=== PATIENT | female | born 1980 | race Caucasian/White ===

== ENCOUNTER → 2017-02-13 | Outpatient (CLI) | payer OTHER | LOC: OD 07:19 | PROVIDERS: ATTEND Nurse Practitioner Primary Care | DX: N97.9 Female infertility, unspecified (principal) | CPT/HCPCS: 36415; 82670 ==

== ENCOUNTER → 2017-02-23 | Outpatient (CLI) | payer BC | LOC: OD 07:57 | PROVIDERS: ATTEND Nurse Practitioner Primary Care | DX: N97.9 Female infertility, unspecified (principal) | CPT/HCPCS: 36415; 82670 ==

== ENCOUNTER → 2017-03-02 | Outpatient (CLI) | payer BC ==
[2017-03-03 08:51] LABS: PROGESTERONE 0.2 ng/mL (.)
== END ==
LOC: OD 07:35
PROVIDERS: ATTEND Nurse Practitioner Primary Care
DX: N97.9 Female infertility, unspecified (principal)
CPT/HCPCS: 36415; 82670; 84144

== ENCOUNTER → 2017-03-19 | Outpatient (CLI) | payer BC | LOC: OD 10:23 | PROVIDERS: ATTEND Nurse Practitioner Primary Care | DX: O20.0 Threatened abortion (principal) | CPT/HCPCS: 36415; 84702 ==

== ENCOUNTER → 2017-03-21 | Outpatient (CLI) | payer BC | LOC: OD 07:47 | PROVIDERS: ATTEND Nurse Practitioner Primary Care | DX: O20.0 Threatened abortion (principal) | CPT/HCPCS: 36415; 84144; 84702 ==

== ENCOUNTER → 2017-03-23 | Outpatient (CLI) | payer BC | LOC: OD 10:59 | PROVIDERS: ATTEND Nurse Practitioner Primary Care | DX: O09.01 Supervision of pregnancy with history of infertility, first trimester (principal); O20.0 Threatened abortion | CPT/HCPCS: 36415; 84702 ==

== ENCOUNTER 2017-10-16 11:02 | Inpatient (IN) | payer OTHER ==
[2017-11-15] MEDS ORDERED: RINGERS SOLUTION,LACTATED 1,000 ML IV PRN (07:41)
[2017-11-15] MEDS ORDERED: OXYTOCIN/NORMAL SALINE 20 UNIT/1,000 ML RTUINJ IV PRN ×2 (07:41→12:52)
[2017-11-15] MEDS ORDERED: RINGERS SOLUTION,LACTATED 1,000 ML IV ONE (07:41)
[2017-11-15] MEDS ORDERED: OXYTOCIN/NORMAL SALINE 20 UNIT/1,000 ML RTUINJ ONE (08:31)
[2017-11-15] MEDS ORDERED: MISOPROSTOL 0.2 MG TABLET ONE (08:31)
[2017-11-15] MEDS ORDERED: LIDOCAINE 1% INJ-PF (10 MG/ML) 30 ML SDV ONE (08:31)
[2017-11-15 08:38] LABS: ABSOLUTE BASOPHILS # (AUTO) 0.1 10^3/uL (0.0-0.2); ABSOLUTE EOSINOPHILS # (AUTO) 0.2 10^3/uL (0.0-0.6); ABSOLUTE LYMPHOCYTES (AUTO) 4.8 10^3/uL (0.5-4.7); ABSOLUTE MONOCYTES (AUTO) 1.2 10^3/uL (0.1-1.4); BASOPHILS % (AUTO) 0.6 % (0-2); EOSINOPHILS % (AUTO) 1.3 % (0-6); HEMATOCRIT 37.3 % (36.0-47.0); HEMOGLOBIN 12.2 g/dL (12.0-15.5); LYMPHOCYTES % (AUTO) 36.2 % (13-45); MEAN CORPUSCULAR HGB CONC 32.6 g/dL (32.0-36.0); MEAN CORPUSCULAR VOLUME 89 fl (80-97); MONOCYTES % (AUTO) 9.2 % (3-13); PLATELET COUNT 312 10^3/uL (150-450); RED BLOOD COUNT 4.21 10^6/uL (3.72-5.28); RED CELL DISTRIBUTION WIDTH 13.9 % (11.5-14.0); SEGMENTED NEUTROPHILS % (AUTO) 52.7 % (42-78); TOTAL CELLS COUNTED % (AUTO) 100 %; WHITE BLOOD COUNT 13.3 10^3/uL (4.0-10.5)
--- NOTE | 2017-11-15 08:45 | Admission Physical ---
Datetime Report Generated by CPN: 11/15/2017 08:44 CURRENT ADMISSION Hx Assessment: The History has been Reviewed and is Current Chief Complaint: Scheduled Induction of Labor Indication for Induction- Other: cholestasis Admit Impression : Term, Intrauterine ; No Active Labor; Intact Membranes; Induction of Labor Admit Plan: Admit to Unit; Initiate Labor Induction Protocol ALLERGIES Medication Allergies: Yes Medication Allergies: nitrofurantoin macrocrystalline/WA (10/26/2014); nitrofurantoin/WA (10/26/2014) Latex: No Latex Allergies OBSTETRICAL HISTORY EDC: 11/24/2017 00:00 : 2 Para: 1 Term: 1 : 0 SAB: 0 IAB: 0 Ectopic: 0 Livin Cesareans: 0 VBACs: 0 Multiple Births: 0 Gestational Diabetes: No Rh Sensitization: No Incompetent Cervix: No HELEN: No Infertility: No ART Treatment: Yes Uterine Anomaly: No IUGR: No Hx Previous C/S: No Macrosomia: No Hx Loss/Stillborn: No PIH: Yes Hx : No Placenta Previa/Abruption: No Depression/PP Depression: No PTL/PROM: No Post Hemorrhage: No Current Procedures: Ultrasound; NST Obstetrical History Comments: G1: 10/2014, preeclampsia G2: current, cholestasis SEE RECORDS Alcohol: No Marijuana : No Cocaine: No Other Illicit Drugs: No Cigarettes: Never Smoker. [id number] MEDICAL HISTORY Diabetes: No Blood Transfusion: No Pulmonary Disease (Asthma, TB): No Breast Disease: No Hypertension: No Senior Foreman Surgery: No Heart Disease: No Hosp/Surgery: No Autoimmune Disorder: No Anesthetic Complications: No Kidney Disease: No Abnormal Pap Smear: No Neuro/Epilepsy: No Psychiatric Disorders: No Other Medical Diseases: No Hepatitis/Liver Disease: No Significant Family History: No Varicosities/Phlebitis: No Trauma/Violence : No Thyroid Dysfunction: No Medical History Comments: AMA, hx pre-eclampsia, hx precipitous labor, G1 IVF, cholestasis of INFECTIOUS HISTORY Gonorrhea: No Genital Herpes: No Chlamydia: No Tuberculosis: No Syphilis: No Hepatitis: No HIV/AIDS Exposure: No Rash or Viral Illness: No HPV: No PHYSICAL EXAM General: Normal HEENT: Normal Neurologic: Normal Thyroid: Deferred Heart: Normal Lungs: Normal Breast: Normal Back: Normal Abdomen: Normal Genitourinary Exam: Normal Extremities: Normal DTRs: Normal Pelvic Type: Adequate Physical Exam Comments: pelvis proven 6.5 lbs VAGINAL EXAM Dilatation: 4 Contraction Comments: irreg. MEMBRANES Membranes: Intact FETUS A EGA: 38.5 Monitoring: External US FHR- Baseline: 135 Variability: Moderate 6-25bpm Decelerations: None FHR Category: Category I Estimated Weight (gm): 3200 Presentation: Vertex Admit Comment: IOL for cholestasis. Hx pre-e, ama, IVF, + rpr, neg TPA Plan for AROM, pit, epidural Anticipate PLANS FOR LABOR AND DELIVERY Labor and Delivery: Cord Blood Banking Pain Management: Epidural Feeding Preference: Breast Benefit of Breast Feed Discussed: Yes Circumcision: Yes INFORMED CONSENT Assignment: Radha Canales MD Signature: with User ID: Russ : with User ID: [email or web address]
[2017-11-15 08:47] LABS: INTERNATIONAL RATION (INR) 0.95; PROTHROMBIN TIME 13.2 SEC (11.4-15.4)
[2017-11-15 08:48] LABS: PARTIAL THROMBOPLASTIN TIME 27.6 SEC (23.5-35.8)
[2017-11-15 08:58] LABS: ALANINE AMINOTRANSFERASE 25 U/L (9-52); ALBUMIN 3.1 g/dL (3.5-5.0); ALKALINE PHOSPHATASE 190 U/L (38-126); ANION GAP 12 (5-19); ASPARTATE AMINO TRANSFERASE 24 U/L (14-36); BILIRUBIN,DIRECT 0.2 mg/dL (0.0-0.4); BILIRUBIN,TOTAL 0.3 mg/dL (0.2-1.3); BLOOD UREA NITROGEN 9 mg/dL (7-20); CALCIUM 9.4 mg/dL (8.4-10.2); CARBON DIOXIDE 20 mmol/L (22-30); CHLORIDE 110 mmol/L (98-107); GLUCOSE 100 mg/dL (75-110); POTASSIUM 3.8 mmol/L (3.6-5.0); SODIUM 141.7 mmol/L (137-145); TOTAL PROTEIN 5.8 g/dL (6.3-8.2)
[2017-11-15 09:07] LABS: APPEARANCE,URINE SLIGHTLY-CLOUDY; BILIRUBIN,URINE NEGATIVE (NEGATIVE); COLOR,URINE YELLOW; GLUCOSE, URINE NEGATIVE (NEGATIVE); KETONES,URINE NEGATIVE (NEGATIVE); LEUKOCYTE ESTERASE,URINE TRACE (NEGATIVE); NITRITE,URINE NEGATIVE (NEGATIVE); PROTEIN,URINE NEGATIVE (NEGATIVE); UROBILINOGEN,URINE NEGATIVE mg/dL (<2.0)
[2017-11-15 09:28] LABS: URINE AMPHETAMINES SCREEN NEGATIVE; URINE BARBITURATES SCREEN NEGATIVE; URINE BENZODIAZEPINES SCREEN NEGATIVE; URINE COCAINE SCREEN NEGATIVE; URINE MARIJUANA (THC) SCREEN NEGATIVE; URINE METHADONE SCREEN NEGATIVE; URINE PHENCYCLIDINE SCREEN NEGATIVE
--- NOTE | 2017-11-15 10:14 | L&D Progress Notes ---
PROGRESS NOTES Datetime Report Generated by CPN: 11/15/2017 10:14 PROGRESS NOTE Impression: Normal Progression of Labor; Reassuring Heart Rate Impression: Normal Progression of Labor; Reassuring Heart Rate Procedures: Artificial ROM; Sterile Vag Exam Procedures: Artificial ROM; Sterile Vag Exam Plan: Continue Present Management Plan: Continue Present Management Informed Consent Obtained: Vaginal Delivery Informed Consent Obtained: Vaginal Delivery Vital Signs : Reviewed Vital Signs : Reviewed Comment: Pt requesting AROM AROM, clear, moderate amount pt may have epidural VAGINAL EXAM Dilatation: 6 Dilatation: 4 Effacement: 90 Station: -1 Contractions: irreg. Contractions: irreg. MEMBRANES Membranes: Ruptured Membranes: Intact Amniotic Fluid Color: Clear FETUS A FHR - Baseline: 135 Monitoring: External US Variability: Moderate 6-25bpm Accelerations: 15X15 Decelerations: None Estimated Weight (gm): 3200 Presentation: Vertex SIGNATURE SIGNATURE: [id number];[id number] SIGNATURE: [id number] Assignment: Radha Canales MD Signature: with User ID: [email or web address] : with User ID: [email or web address]
[2017-11-15] MEDS ORDERED: FENTANYL/BUPIVACAINE/NS/PF 300 MCG/150 ML RTUINJ EPI ONE (10:15)
[2017-11-15] MEDS ORDERED: BUPIVACAINE HCL 0.25 % INJ/PF (2.5 MG/1 ML) 30 ML VIAL ONE (10:15)
[2017-11-15] MEDS ORDERED: EPHEDRINE SULFATE INJ 50 MG/1 ML AMPULE ONE (10:15)
[2017-11-15] MEDS ORDERED: ACETAMINOPHEN WITH CODEINE #3 TABLET PO PRN ×2 (12:52)
[2017-11-15] MEDS ORDERED: DIBUCAINE 1% OINTMENT 28 GM TP PRN (12:52)
[2017-11-15] MEDS ORDERED: PROMETHAZINE HCL 25 MG TABLET PO PRN (12:52)
[2017-11-15] MEDS ORDERED: BENZOCAINE/MENTHOL AEROSOL SPRAY 56 ML TOP PRN (12:52)
[2017-11-15] MEDS ORDERED: PSEUDOEPHEDRINE HCL 30 MG TABLET PO PRN (12:52)
[2017-11-15] MEDS ORDERED: ZOLPIDEM TARTRATE 5 MG TABLET PO PRN (12:52)
[2017-11-15] MEDS ORDERED: PROMETHAZINE HCL INJ 25 MG/1 ML VIAL IV PRN (12:52)
[2017-11-15] MEDS ORDERED: DIPH/PERTUSS(ACELL)/TETANUS VAC/PF 0.5 ML SYR (>=10YO) IM PRN (12:52)
[2017-11-15] MEDS ORDERED: PROMETHAZINE HCL 25 MG SUPP.RECT PR PRN (12:52)
[2017-11-15] MEDS ORDERED: GLYCERIN/WITCH HAZEL LEAF 1 EACH MED..PAD TP PRN (12:52)
[2017-11-15] MEDS ORDERED: DIPHENHYDRAMINE HCL 25 MG CAPSULE PO PRN (12:52)
[2017-11-15] MEDS ORDERED: ACETAMINOPHEN 325 MG TABLET PO PRN (12:52)
[2017-11-15] MEDS ORDERED: MAGNESIUM HYDROXIDE SUSP 30 ML UDCUP PO PRN (12:52)
[2017-11-15] MEDS ORDERED: NA PHOS,M-B/NA PHOS,DI-BA (ADULT) 133 ML ENEMA PR PRN (12:52)
[2017-11-15] MEDS ORDERED: MEASLES,MUMPS&RUBELLA VACC/PF 0.5 ML VIAL SUBCUT PRN (12:52)
--- NOTE | 2017-11-15 13:08 | Delivery Summary ---
Del Sum A-C Datetime Report Generated by CPN: 11/15/2017 13:08 DELIVERY PERSONNEL DELIVERY PERSONNEL: [id number] Delivery Doctor:: Radha Canales MD Labor and Delivery Nurse:: Ayesha Orellana RNbrush fabrication supervisor Nurse:: ROBERT Jarrett Quality Process Engineer/BARIATRIC PROGRAM COORDINATOR: Yris MushtaqBeekom, TUNNEL ELASTIC OPERATOR [email or web address] MATERNAL INFORMATION Delivery Anesthesia: Epidural Medications After Delivery: Pitocin Bolus-Please Comment; Pitocin Drip 20 Units/1000ml NSS Maternal Complications: None LABOR SUMMARY EDC: 11/24/2017 00:00 No. Babies in Womb: 1 Attempted: No Labor Anesthesia: Epidural LABOR INFORMATION Reason for Induction: Other Reason for Induction- Other: cholestasis Onset of Labor: 11/15/2017 10:05 Complete Dilatation: 11/15/2017 11:34 Oxytocin: Induction Group B Beta Strep: negative Antibiotics # of Doses: 0 Steroids Given: None Reason Steroids Not Administered: Not Applicable MEMBRANES Membranes Rupture Method: Artificial Rupture of Membranes: 11/15/2017 10:05 Length of Rupture (hr): 1.82 Amniotic Fluid Color: Clear Amniotic Fluid Amount: Large Amniotic Fluid Odor: Normal STAGES OF LABOR Stage 1 hr: 1 Stage 1 min: 29 Stage 2 hr: 0 Stage 2 min: 20 Stage 3 hr: 0 Stage 3 min: 16 Total Time in Labor hr: 2 Total Time in Labor min: 5 VAGINAL DELIVERY Episiotomy: None Laceration #1: Perineal Laceration Extension #1: First Degree Laceration Repair: Yes CSECTION DELIVERY Primary Indication: N/A Secondary Indication: N/A CSection Incidence: N/A Labor: N/A Elective: N/A CSection Incision: N/A BABY A INFORMATION Delivery Date/Time: 11/15/2017 11:54 Method of Delivery: Vaginal Born in Route : No : N/A Forceps: N/A Vacuum Extraction: N/A Shoulder Dystocia : No PRESENTATION/POSITION BABY A Presentation: Cephalic Cephalic Presentation: Vertex Vertex Position: Right Occipital Anterior Breech Presentation: N/A PLACENTA INFORMATION BABY A Placenta Delivery Time : 11/15/2017 12:10 Placenta Method of Delivery: Spontaneous Placenta Status: Delivered SCORES BABY A Heart Rate 1 min: >100 bpm Resp Effort 1 min: Good Cry Reflex Irritability 1 min: Cough or Sneeze or Pulls Away Muscle Tone 1 min: Active Motion Color 1 min: Blue/Pale Resuscitation Effort 1 min: Tactile Stimulation SCORE 1 MIN: 8 Heart Rate 5 min: >100 bpm Resp Effort 5 min: Good Cry Reflex Irritability 5 min: Cough or Sneeze or Pulls Away Muscle Tone 5 min: Active Motion Color 5 min: Body [place], Extremities Blue Resuscitation Effort 5 min: Tactile Stimulation SCORE 5 MIN: 9 INFANT INFORMATION BABY A Gestational Age at Delivery: 38.5 Gestational Status: Early Term- 37- 38.6 Weeks Outcome : Liveborn Infant Condition : Stable Infant Sex: Male IDENTIFICATION BABY A Verification Date/Time: 11/15/2017 12:16 ID Band Number: [id number] Mother's Name Verified: Yes RN Verifying Infant: Yumiko Ocasio RN Additional Verifying Personnel: ROBERT Ceballos WEIGHT/LENGTH BABY A Infant Birthweight (gm): 3460 Infant Weight (lb): 7 Weight (oz): 10 Infant Length (in): 21.00 Infant Length (cm): 53.34 CORD INFORMATION BABY A No. Cord Vessels: 3 Nuchal Cord : Around Neck x1, Loose Cord Blood Taken: Yes-For Storage (Mom's Blood type +) Banking/Donate Info: [employer] [facility] Infant Suction: None ASSESSMENT BABY A Complications: None Physical Findings at Delivery: Within Normal Limits Infant Respirations: Appears Normal Skin to Skin: Yes Skin to Skin Time (min): 60 Radiographer/ALS Called : No Infant Care By: Huma Curtis C Transferred To: Remains with Mother BABY B INFORMATION : N/A
--- NOTE | 2017-11-15 13:08 | Warning Signs in Babies ---
VOD Warning Signs Datetime Report Generated by [facility]: 11/15/2017 13:08 VOD#[id number] -Warning Signs in Babies: Viewed with Parent(s)/Family (11/15/2017 07:09:Ayesha Orellana RN)
[2017-11-15] MEDS: IBUPROFEN 800 MG TABLET PO SCH ×2 (16:25→22:24)
[2017-11-15] MEDS: DOCUSATE SODIUM 100 MG CAPSULE PO SCH (18:15)
[2017-11-15] MEDS: FERROUS SULFATE 325 MG TABLET PO SCH (18:15)
[2017-11-15] MEDS: FAMOTIDINE 20 MG TABLET PO SCH (22:25)
[2017-11-16] MEDS: IBUPROFEN 800 MG TABLET PO SCH ×3 (06:16→21:32)
[2017-11-16 07:46] LABS: HEMATOCRIT 31.3 % (36.0-47.0); HEMOGLOBIN 10.8 g/dL (12.0-15.5); MEAN CORPUSCULAR HEMOGLOBIN 30.5 pg (27.0-33.4); MEAN CORPUSCULAR HGB CONC 34.4 g/dL (32.0-36.0); MEAN CORPUSCULAR VOLUME 89 fl (80-97); PLATELET COUNT 244 10^3/uL (150-450); RED BLOOD COUNT 3.53 10^6/uL (3.72-5.28); RED CELL DISTRIBUTION WIDTH 13.5 % (11.5-14.0); WHITE BLOOD COUNT 15.2 10^3/uL (4.0-10.5)
[2017-11-16] MEDS: SENNOSIDES/DOCUSATE 8.6-50 MG 1 EACH TABLET PO SCH (09:17)
[2017-11-16] MEDS: DOCUSATE SODIUM 100 MG CAPSULE PO SCH ×2 (09:17→17:28)
[2017-11-16] MEDS: PRENATAL VITAMIN W DHA CAPSULE PO SCH (09:18)
[2017-11-16] MEDS: FERROUS SULFATE 325 MG TABLET PO SCH ×2 (09:18→17:29)
[2017-11-16] MEDS: FAMOTIDINE 20 MG TABLET PO SCH ×2 (09:19→21:32)
--- NOTE | 2017-11-16 09:22 | PDOC PROGRESS REPORT ---
Subjective-OB Progress Note for:: 11/16/17 Subjective: s/p vaginal delivery pt well ff@u-1 mild lochia hgb 10.8 offers no complaints anticipate d/c in AM Physical Exam (OB) Vital Signs: Temp Pulse Resp BP Pulse Ox 98.6 F 78 16 113/74 97 11/15/17 19:44 11/15/17 19:44 11/15/17 19:44 11/15/17 19:44 11/15/17 19:44 Intake & Output 11/15/17 11/16/17 11/17/17 06:59 06:59 06:59 Intake Total 400 Balance 400 Weight 77.9 kg - PIH/Pre-Eclampsia DTR's: 1 + Clonus: Negative Headache: Absent Epigastric Pain: No Visual Changes: No - Lochia Lochia Amount: Scant < 10 ml Lochia Color: Rubra/Red - Abdomen Description: Soft, Round Hernia Present: No Fundal Description: Firm, Midline Fundal Height: u/u - u/2 Objective-Diagnostic Laboratory: 11/16/17 07:08 11/15/17 08:01 11/16/17 07:08 WBC 15.2 H RBC 3.53 L Hgb 10.8 L Hct 31.3 L MCV 89 MCH 30.5 MCHC 34.4 RDW 13.5 Plt Count 244
[2017-11-17] MEDS: IBUPROFEN 800 MG TABLET PO SCH (06:08)
[2017-11-17 07:52] VITALS: BP 115/73
--- NOTE | 2017-11-17 08:13 | PDOC DISCHARGE SUMMARY ---
Final Diagnosis Discharge Date: 11/17/17 - Final Diagnosis (1) Cholestasis during Is this a current diagnosis for this admission?: Yes (2) Vaginal delivery Is this a current diagnosis for this admission?: Yes Discharge Data - Discharge Medication Home Medications: 95/Iron Fum/Folic/Dha [ + Dha Combo Pack] 1 tab PO DAILY Ranitidine HCl [Zantac] 300 mg PO PRN PRN 11/15/17 Reason(s) for Admission: Induction of Labor Complication(s): Laceration-Vaginal Laceration-Degree: 1st - Diagnosis Test Laboratory: Temp Pulse Resp BP Pulse Ox 98.4 F 74 18 115/73 99 11/17/17 07:19 11/17/17 07:19 11/17/17 07:19 11/17/17 07:19 11/17/17 07:19 11/15/17 11/15/17 11/16/17 07:50 08:01 07:08 RBC 4.21 3.53 L Hgb 12.2 10.8 L Hct 37.3 31.3 L Urine Opiates Screen NEGATIVE - Discharge information/Instructions Discharge Activity: Activity As Tolerated Discharge Diet: Regular Disposition: HOME, SELF-CARE Follow up with: [facility] in: 3
[2017-11-17] MEDS: PRENATAL VITAMIN W DHA CAPSULE PO SCH (09:37)
[2017-11-17] MEDS: FERROUS SULFATE 325 MG TABLET PO SCH (09:38)
[2017-11-17] MEDS: SENNOSIDES/DOCUSATE 8.6-50 MG 1 EACH TABLET PO SCH (09:38)
[2017-11-17] MEDS: DOCUSATE SODIUM 100 MG CAPSULE PO SCH (09:38)
--- NOTE | 2017-11-19 08:21 | Delivery Summary ---
Del Sum A-C Datetime Report Generated by CPN: 11/19/2017 08:21 DELIVERY PERSONNEL DELIVERY PERSONNEL: [id number] Delivery Doctor:: Radha Canales MD Anesthesiologist:: Ralph Sampson MD Labor and Delivery Nurse:: Ayesha Orellana RNbatt packer Nurse:: ROBERT Jarrett Speech Correction Assistant/TETRYL WRINGER OPERATOR: Yris Clinton, SWATCH CHECKER MATERNAL INFORMATION Delivery Anesthesia: Epidural Medications After Delivery: Pitocin Bolus-Please Comment; Pitocin Drip 20 Units/1000ml NSS Estimated Blood Loss (ml): 200 Maternal Complications: None Provider Comments: VMI delivered in EMILIE presentation with loose nuchal cord. Shoulders and body delivererd without difficulty. Cord doubly clamped and cut and cord blood banking kit completed per patient request. Placenta delivered via manual extraction due to 16 minute time delay and placenta adhered at midline of fundus. Repeat evaluation revealed no e/o retained placenta. 1st degree laceration repaired in usual fashion. FF at U. Good hemostasis. Mother and baby stable upon provider leaving the room. LABOR SUMMARY EDC: 11/24/2017 00:00 No. Babies in Womb: 1 Attempted: No Labor Anesthesia: Epidural LABOR INFORMATION Reason for Induction: Other Reason for Induction- Other: cholestasis of Onset of Labor: 11/15/2017 10:05 Complete Dilatation: 11/15/2017 11:34 Oxytocin: Induction Group B Beta Strep: negative Antibiotics # of Doses: 0 Steroids Given: None Reason Steroids Not Administered: Not Applicable MEMBRANES Membranes Rupture Method: Artificial Rupture of Membranes: 11/15/2017 10:05 Length of Rupture (hr): 1.82 Amniotic Fluid Color: Clear Amniotic Fluid Amount: Large Amniotic Fluid Odor: Normal STAGES OF LABOR Stage 1 hr: 1 Stage 1 min: 29 Stage 2 hr: 0 Stage 2 min: 20 Stage 3 hr: 0 Stage 3 min: 16 Total Time in Labor hr: 2 Total Time in Labor min: 5 VAGINAL DELIVERY Episiotomy: None Laceration #1: Perineal Laceration Extension #1: First Degree Laceration Repair: Yes Laceration Repair Note: 1st degree perineal laceration repaired in usual fashion Sponge Count Correct: Yes Sharps Count Correct: Yes CSECTION DELIVERY Primary Indication: N/A Secondary Indication: N/A CSection Incidence: N/A Labor: N/A Elective: N/A CSection Incision: N/A BABY A INFORMATION Infant Delivery Date/Time: 11/15/2017 11:54 Method of Delivery: Vaginal Method of Delivery: Vaginal Born in Route : No : N/A Forceps: N/A Vacuum Extraction: N/A Shoulder Dystocia : No PRESENTATION/POSITION BABY A Presentation: Cephalic Cephalic Presentation: Vertex Vertex Position: Right Occipital Anterior Breech Presentation: N/A PLACENTA INFORMATION BABY A Placenta Delivery Time : 11/15/2017 12:10 Placenta Method of Delivery: Spontaneous Placenta Status: Delivered SCORES BABY A Heart Rate 1 min: >100 bpm Resp Effort 1 min: Good Cry Reflex Irritability 1 min: Cough or Sneeze or Pulls Away Muscle Tone 1 min: Active Motion Color 1 min: Blue/Pale Resuscitation Effort 1 min: Tactile Stimulation SCORE 1 MIN: 8 Heart Rate 5 min: >100 bpm Resp Effort 5 min: Good Cry Reflex Irritability 5 min: Cough or Sneeze or Pulls Away Muscle Tone 5 min: Active Motion Color 5 min: Body [place], Extremities Blue Resuscitation Effort 5 min: Tactile Stimulation SCORE 5 MIN: 9 INFANT INFORMATION BABY A Gestational Age at Delivery: 38.5 Gestational Status: Early Term- 37- 38.6 Weeks Infant Outcome : Liveborn Condition : Stable Sex: Male Infant Sex: Male IDENTIFICATION BABY A Verification Date/Time: 11/15/2017 12:16 ID Band Number: [id number] Mother's Name Verified: Yes Infant RN Verifying : CJodi Ocasio RN Additional Verifying Personnel: Julio Curtis RNC WEIGHT/LENGTH BABY A Infant Birthweight (gm): 3460 Infant Weight (lb): 7 Infant Weight (oz): 10 Infant Length (in): 21.00 Infant Length (cm): 53.34 CORD INFORMATION BABY A No. Cord Vessels: 3 Nuchal Cord : Around Neck x1, Loose Cord Blood Taken: Yes-For Storage (Mom's Blood type +) Banking/Donate Info: [employer] [facility] Suction: None ASSESSMENT BABY A Complications: None Physical Findings at Delivery: Within Normal Limits Infant Respirations: Appears Normal Skin to Skin: Yes Skin to Skin Time (min): 60 Dry Room Attendant/ALS Called : No Care By: Huma Curtis RNC Transferred To: Remains with Mother BABY B INFORMATION : N/A SIGNATURES Signature: with User ID: [email or web address]
== END 2017-11-17 13:05 | disposition home or self-care (01) | DRG 775 ==
LOC: UNDOADMIN 11:02 → EH 11:02 → LR 11-15 07:38 → 2S 11-15 14:21
PROVIDERS: ADMIT Student in an Organized Health Care Education/Training Program; ATTEND Student in an Organized Health Care Education/Training Program
PROC: 10E0XZZ Delivery of Products of Conception, External Approach (ICD-10-PCS; principal; 2017-11-15)
PROC: 0HQ9XZZ Repair Perineum Skin, External Approach (ICD-10-PCS; 2017-11-15)
PROC: 10907ZC Drainage of Amniotic Fluid, Therapeutic from Products of Conception, Via Natural or Artificial Opening (ICD-10-PCS; 2017-11-15)
PROC: 3E033VJ Introduction of Other Hormone into Peripheral Vein, Percutaneous Approach (ICD-10-PCS; 2017-11-15)
PROC: 4A1HXCZ Monitoring of Products of Conception, Cardiac Rate, External Approach (ICD-10-PCS; 2017-11-15)
DX: O26.62 Liver and biliary tract disorders in childbirth (principal); K83.1 Obstruction of bile duct; O70.0 First degree perineal laceration during delivery; O69.81X0 Labor and delivery complicated by cord around neck, without compression, not applicable or unspecified; Z3A.38 38 weeks gestation of pregnancy; Z88.3 Allergy status to other anti-infective agents; Z37.0 Single live birth
CPT/HCPCS: 36415; 80053; 80307; 81001; 85025; 85027; 85610; 85730; 86592; 86850; 86900; 86901; 88307; 94760; J2590; J3010; J3490

== ENCOUNTER → 2017-11-09 | Outpatient (CLI) | payer OTHER ==
[2017-11-09 17:57] LABS: ALANINE AMINOTRANSFERASE 23 U/L (9-52); ALBUMIN 3.4 g/dL (3.5-5.0); ALKALINE PHOSPHATASE 195 U/L (38-126); ANION GAP 12 (5-19); ASPARTATE AMINO TRANSFERASE 32 U/L (14-36); BILIRUBIN,DIRECT 0.3 mg/dL (0.0-0.4); BILIRUBIN,TOTAL 0.5 mg/dL (0.2-1.3); BLOOD UREA NITROGEN 9 mg/dL (7-20); CALCIUM 9.2 mg/dL (8.4-10.2); CARBON DIOXIDE 20 mmol/L (22-30); CHLORIDE 108 mmol/L (98-107); GLUCOSE 82 mg/dL (75-110); POTASSIUM 4.4 mmol/L (3.6-5.0); SODIUM 140.2 mmol/L (137-145); TOTAL PROTEIN 6.4 g/dL (6.3-8.2)
== END ==
LOC: OD 16:05
PROVIDERS: ATTEND Obstetrics & Gynecology
DX: O09.523 Supervision of elderly multigravida, third trimester (principal); O26.893 Other specified pregnancy related conditions, third trimester; L29.9 Pruritus, unspecified
CPT/HCPCS: 36415; 80053; 82239; 84550

== ENCOUNTER 2018-12-04 11:42 | Day surgery (SDC) | payer OTHER ==
--- NOTE | 2018-12-04 11:34 | HISTORY AND PHYSICAL E ---
History and Physical NAME: MAIRA CAMARILLO : 1980 AGE: 37Y ADMITTED: 12/04/2018 ROOM: HISTORY OF PRESENT ILLNESS: This is a 37-year-old female admitted for a presumed missed AB. She presented to clinic with profuse vaginal bleeding and clotting but no pain with the uterus demonstrating what appeared to be products of conception in utero. No free fluid noted in the pelvis. No adnexal masses or cystic structures were identified. The patient is status post delivery about 1 year ago, started ovulating a couple of months ago, no control use, had a history of longstanding infertility. ALLERGIES: No known allergies. PAST SURGICAL HISTORY: Appendectomy and Bartholin cyst procedure. CURRENT MEDICATIONS: vitamins. REVIEW OF SYSTEMS: Positive for vaginal bleeding, mild cramping, and clotting. Denies cardiac, respiratory, or genitourinary issues otherwise. PHYSICAL EXAMINATION: VITAL SIGNS: Blood pressure 120/80, pulse 80, respiratory rate 20. HEENT: Normal. LUNGS: Clear. ABDOMEN: Soft, nontender. PELVIC: Exam demonstrates a large amount of blood in the vault. No adnexal masses appreciated. Nontender pelvis. Cervix is open to digital palpation. IMPRESSION: Missed AB. PLAN: Suction D and C. DICTATING PHYSICIAN: BASSAM HERNANDEZ M.D. [id number] PHY#: [id number] ID: [id number] JOB#: [id number] ACCT: [id number] cc:BASSAM HERNANDEZ M.D. >
[2018-12-04] MEDS ORDERED: CEFAZOLIN 1 GM/D5W RTU 1 GM/50 ML RTUPB IV PRN (12:01)
[2018-12-04] MEDS ORDERED: RINGERS SOLUTION,LACTATED 1,000 ML IV PRN (12:04)
[2018-12-04] MEDS ORDERED: CEFAZOLIN 1 GM/D5W RTU 1 GM/50 ML RTUPB IV ONE (12:37)
[2018-12-04 13:05] LABS: HEMATOCRIT 36.5 % (36.0-47.0); HEMOGLOBIN 11.9 g/dL (12.0-15.5); MEAN CORPUSCULAR HEMOGLOBIN 28.6 pg (27.0-33.4); MEAN CORPUSCULAR HGB CONC 32.6 g/dL (32.0-36.0); MEAN CORPUSCULAR VOLUME 88 fl (80-97); PLATELET COUNT 209 10^3/uL (150-450); RED BLOOD COUNT 4.15 10^6/uL (3.72-5.28); RED CELL DISTRIBUTION WIDTH 13.4 % (11.5-14.0); WHITE BLOOD COUNT 7.3 10^3/uL (4.0-10.5)
[2018-12-04] MEDS ORDERED: LIDOCAINE 1% INJ-PF (10 MG/ML) 30 ML SDV ONE (13:25)
[2018-12-04] MEDS ORDERED: KETOROLAC TROMETHAMINE 60 MG/2 ML SDV ONE (13:28)
[2018-12-04] MEDS ORDERED: ONDANSETRON HCL INJ/PF 4 MG/2 ML SDV ONE (13:28)
[2018-12-04] MEDS ORDERED: METOCLOPRAMIDE HCL INJ/PF 10 MG/2 ML SDV ONE (13:28)
[2018-12-04] MEDS ORDERED: DEXAMETHASONE SOD PHOSPHATE INJ 4 MG/1 ML VIAL ONE (13:28)
[2018-12-04] MEDS ORDERED: LIDOCAINE 2% INJ-PF (20 MG/ML) 2 ML AMPUL ONE (13:28)
[2018-12-04 13:39] LABS: ANION GAP 11 (5-19); BLOOD UREA NITROGEN 12 mg/dL (7-20); CARBON DIOXIDE 22 mmol/L (22-30); CHLORIDE 109 mmol/L (98-107); GLUCOSE 77 mg/dL (75-110); POTASSIUM 3.9 mmol/L (3.6-5.0); SODIUM 141.6 mmol/L (137-145)
[2018-12-04] MEDS ORDERED: FENTANYL CITRATE INJ/PF 100 MCG/2 ML AMPUL ONE (14:23)
[2018-12-04] MEDS ORDERED: EPHEDRINE SULFATE INJ 50 MG/1 ML AMPULE ONE (14:24)
[2018-12-04] MEDS ORDERED: MIDAZOLAM 2 MG/2 ML INJ ONE ×2 (14:24→14:25)
[2018-12-04] MEDS ORDERED: PROPOFOL INJ 200 MG/20 ML VIAL IV ONE (14:24)
[2018-12-04] MEDS ORDERED: ACETAMINOPHEN 1,000 MG/100 ML RTUPB IV ONE (14:25)
--- NOTE | 2018-12-04 15:15 | OPERATIVE REPORT E ---
Operative Report NAME: MAIRA CMAARILLO : 1980 AGE: 37Y DATE OF SURGERY: 12/04/2018 ROOM: PREOPERATIVE DIAGNOSIS: MISSED AB. POSTOPERATIVE DIAGNOSIS: MISSED AB, APPROXIMATELY 6 WEEKS. OPERATION: SUCTION D AND C. SURGEON: BASSAM HERNANDEZ M.D. COMPLICATIONS: None. ANESTHESIA: LMAC, paracervical block. FINDINGS: Products of conception, small amount. Anterior uterus approximately 6 weeks size. No adnexal masses appreciated. Bladder was left undrained. INDICATION FOR PROCEDURE: The patient had profound bleeding on the day of the procedure and was seen in the office, with products of conception within the uterus. Follow-up hCG was 287 in the preoperative area. She was brought in for D and C for complete emptying of the uterus. The usual risks of bleeding, infection, risks of anesthesia, damage to surrounding tissues. The patient understood. PROCEDURE: The patient was taken to the operating room and placed in modified lithotomy position. After adequate anesthesia, she was prepped and draped for a D and C. After timeout performed, *------*, antibiotics given. The uterus was examined and sounded using 8 curved suction curette. Products of conception were removed. Curettage followed, demonstrating good emptying of the uterus. Bleeding was nil at the completion of the procedure. All sponge and needle counts were correct. DICTATING PHYSICIAN: BASSAM HERNANDEZ M.D. [id number] PHY#: [id number] ID: [id number] JOB#: [id number] ACCT: [id number] cc:BASSAM HERNANDEZ M.D. >
[2018-12-04 17:09] VITALS: BP 101/66
== END 2018-12-04 16:37 | disposition home or self-care (01) ==
LOC: OROUT 11:42
PROVIDERS: ATTEND Specialist
DX: O02.1 Missed abortion (principal)
CPT/HCPCS: 86900; 86901; 36415; 86850; 84702; 85027; 80048; 88305 ×2; 59820; J2250; J0690; J1100; J1885; J3010; J3490 ×2; J2765; J2405; J2704; J0131; 1965

== ENCOUNTER → 2018-12-12 | Outpatient (CLI) | payer OTHER | LOC: OD 12:16 | PROVIDERS: ATTEND Nurse Practitioner Primary Care | DX: O03.9 Complete or unspecified spontaneous abortion without complication (principal) | CPT/HCPCS: 36415; 84702 ==

== ENCOUNTER → 2018-12-19 | Outpatient (CLI) | payer OTHER | LOC: OD 07:56 | PROVIDERS: ATTEND Nurse Practitioner Primary Care | DX: O03.9 Complete or unspecified spontaneous abortion without complication (principal) | CPT/HCPCS: 36415; 84702 ==

== ENCOUNTER → 2020-06-28 | Outpatient (CLI) | payer OTHER ==
[~2020-06-28] MED LIST: COVID-19 VACCINE (PFIZER)/PF 30 MCG/0.3 ML VIAL IM ONE; EPINEPHRINE INJ/PF 1 MG/1 ML AMPULE IM PRN
== END ==
LOC: EMPHEALTH 12:51
PROVIDERS: ATTEND Internal Medicine
DX: Z23 Encounter for immunization (principal)
CPT/HCPCS: 91300

== ENCOUNTER → 2020-07-19 | Outpatient (CLI) | payer OTHER | LOC: EMPHEALTH 12:57 | PROVIDERS: ATTEND Internal Medicine | DX: Z23 Encounter for immunization (principal) | CPT/HCPCS: 91300 ==